=== PATIENT | male | born 1975 | race African-American/Black ===

== ENCOUNTER 2019-06-26 08:08 | Emergency (ER) | payer MEDICAID ==
[~2019-06-26] VITALS: Ht 175.3 cm; Wt 61.4 kg
[~2019-06-26 08:08] MED LIST: CYCL-1 PO
[2019-06-26] MEDS ORDERED: ibuprofen tablet 400 MG TABLET PO ONE (09:35)
[2019-06-26] MEDS ORDERED: ibuprofen 200mg tablet PO ONE (09:45)
[2019-06-26] MEDS ORDERED: IBUP-1984 PO (09:46)
[2019-06-26 09:59] VITALS: BP 142/90
== END 2019-06-26 10:34 | disposition home or self-care (01) ==
LOC: ER 08:09
DX: S63.501A Unspecified sprain of right wrist, initial encounter (principal); Z79.899 Other long term (current) drug therapy; W01.0XXA Fall on same level from slipping, tripping and stumbling without subsequent striking against object, initial encounter; Y93.89 Activity, other specified; Y92.89 Other specified places as the place of occurrence of the external cause; Y99.8 Other external cause status
CPT/HCPCS: 73130; 99284

== ENCOUNTER 2020-07-27 07:58 | Emergency (ER) | payer MEDICAID | END 2020-07-27 08:18 | disposition left against medical advice (07) | LOC: ER 07:58 | DX: K59.00 Constipation, unspecified (principal); Z53.21 Procedure and treatment not carried out due to patient leaving prior to being seen by health care provider ==

== ENCOUNTER 2021-02-02 08:09 | Emergency (ER) | payer MEDICAID ==
[~2021-02-02] VITALS: Ht 175.3 cm; Wt 62.6 kg
[2021-02-02 08:27] VITALS: BP 113/55
[2021-02-02] MEDS ORDERED: acetaminophen 325mg tablet PO ONE (08:45)
== END 2021-02-02 09:37 | disposition home or self-care (01) ==
LOC: ER 08:10
DX: S60.211A Contusion of right wrist, initial encounter (principal); M25.531 Pain in right wrist; Z79.899 Other long term (current) drug therapy; X58.XXXA Exposure to other specified factors, initial encounter; Y93.89 Activity, other specified; Y92.89 Other specified places as the place of occurrence of the external cause; Y99.8 Other external cause status
CPT/HCPCS: 73110; 99283